=== PATIENT | male | born 1935 | race Caucasian/White ===

== ENCOUNTER 2016-09-02 18:22 | Emergency (ER) | payer BC, MEDICARE ==
[2016-09-02 18:52] LABS: ABSOLUTE BASOPHILS # (AUTO) 0.1 10^3/uL (0.0-0.2); ABSOLUTE EOSINOPHILS # (AUTO) 0.2 10^3/uL (0.0-0.6); ABSOLUTE LYMPHOCYTES (AUTO) 1.7 10^3/uL (0.5-4.7); ABSOLUTE MONOCYTES (AUTO) 0.7 10^3/uL (0.1-1.4); ABSOLUTE NEUT (AUTO) 4.1 10^3/uL (1.7-8.2); EOSINOPHILS % (AUTO) 2.4 % (0-6); HEMATOCRIT 38.1 % (37.9-51.0); HEMOGLOBIN 13.6 g/dL (13.5-17.0); HGB HCT DIFFERENCE 2.7; LYMPHOCYTES % (AUTO) 24.8 % (13-45); MEAN CORPUSCULAR HGB CONC 35.6 g/dL (32.0-36.0); MEAN CORPUSCULAR VOLUME 101 fl (80-97); MONOCYTES % (AUTO) 10.9 % (3-13); RED BLOOD COUNT 3.77 10^6/uL (4.35-5.55); RED CELL DISTRIBUTION WIDTH 13.2 % (11.5-14.0); SEGMENTED NEUTROPHILS % (AUTO) 60.9 % (42-78); WHITE BLOOD COUNT 6.7 10^3/uL (4.0-10.5)
[2016-09-02] MEDS ORDERED: MAG HYDROX/AL HYDROX/SIMETH SUSP 30 ML UDCUP PO ONE (19:04)
[2016-09-02] MEDS ORDERED: MORPHINE SULFATE 10 MG/ML INJ IV PRN (19:04)
[2016-09-02] MEDS ORDERED: METOCLOPRAMIDE HCL ORAL SOLN 10 MG/10 ML UDCUP PO ONE (19:04)
[2016-09-02] MEDS ORDERED: LIDOCAINE 2% VISCOUS SOLN 20 ML UDCUP PO ONE (19:04)
[2016-09-02] MEDS ORDERED: ONDANSETRON HCL INJ/PF 4 MG/2 ML SDV IV ONE (19:05)
--- NOTE | 2016-09-02 19:10 | ER Document Report ---
ED General - General Chief Complaint: Chest Pain Stated Complaint: CHEST PAIN Time seen by provider: 19:08 Mode of Arrival: Medic Information source: Patient Notes: This is a 81-year-old man with a history of [id number] diabetes who presents to the emergency room with nonradiating substernal chest pain. He denies any radiation to the arms, jaw or to the back. He denies shortness of breath or abdominal pain. Patient denies any cardiac history. His only medicine is metformin and admits that he doesn't always take it. He denies any smoking. He does have a family history of coronary artery disease. Patient states he was given some nitroglycerin by EMS and it did help. EMS reports that his initial blood pressure at the scene was 200/100. He was given nitroglycerin 2, started on a Nitropaste, given normal saline bolus by EMS. Patient does state he took 2 full aspirins at home before EMS arrival. Onset of pain: Approximately 4 PM today Primary care physician: Dr. Shannon in [place] Medication: Metformin (not all the time) Past surgical history: Appendectomy as a child Allergies: None - HPI Onset: Just prior to arrival Onset/Duration: Gradual Quality of pain: Dull Severity: Moderate Pain Level: 3 Associated symptoms: Chest pain. denies: Fever, Shortness of breath, Sweating Exacerbated by: Denies Relieved by: Other - Patient states that initially he had some relief with nitroglycerin by EMS Similar symptoms previously: No Recently seen / treated by doctor: No - Related Data Allergies/Adverse Reactions: No Known Allergies Allergy (Verified 09/02/16 19:10) Past Medical History - General Information source: Patient - Social History Smoking Status: Never Smoker Cigarette use (# per day): No Chew tobacco use (# tins/day): No Frequency of alcohol use: Occasional Drug Abuse: None Lives with: Spouse/Significant other Family History: CAD Patient has suicidal ideation: No Patient has homicidal ideation: No - Past Medical History Cardiac Medical History: Reports: None Pulmonary Medical History: Reports: None EENT Medical History: Reports: None Neurological Medical History: Reports: None Endocrine Medical History: Reports: Hx Diabetes Mellitus Type 2 Renal/ Medical History: Reports: None Malignancy Medical History: Reports None GI Medical History: Reports: None Musculoskeltal Medical History: Reports None Skin Medical History: Reports None Psychiatric Medical History: Reports: None Traumatic Medical History: Reports: None Infectious Medical History: Reports: None Past Surgical History: Reports: Hx Appendectomy Review of Systems - Review of Systems Constitutional: denies: Chills, Fever EENT: No symptoms reported Cardiovascular: See HPI Respiratory: No symptoms reported Gastrointestinal: No symptoms reported Genitourinary: No symptoms reported Male Genitourinary: No symptoms reported Musculoskeletal: No symptoms reported Skin: No symptoms reported Hematologic/Lymphatic: No symptoms reported Neurological/Psychological: No symptoms reported Physical Exam - Vital signs Vitals: Resp 13 09/02/16 18:31 Notes: Physical exam: GENERAL: 81-year-old man, alert and oriented 3, no acute distress HEAD: Atraumatic, normocephalic. EYES: Pupils equal round and reactive to light, extraocular movements intact, sclera anicteric, conjunctiva are normal. ENT: TMs normal, nares patent, oropharynx clear without exudates. Moist mucous membranes. NECK: Normal range of motion, supple without lymphadenopathy or JVD. LUNGS: Breath sounds clear to auscultation bilaterally and equal. No wheezes rales or rhonchi. HEART: Regular rate and rhythm without murmurs, rubs or gallops. ABDOMEN: Soft, normoactive bowel sounds. No tenderness to palpation. No guarding, no rebound. No masses appreciated. EXTREMITIES: Normal range of motion, no pitting or edema. No clubbing or cyanosis. Patient is good, equal pulses in the upper extremities. Equal femoral pulses. NEUROLOGICAL: Cranial nerves II through XII grossly intact. Normal speech, normal gait. PSYCH: Normal mood, normal affect. SKIN: Warm, Dry, normal turgor, no rashes or lesions noted. Course - Re-evaluation Re-evalutation: 09/02/16 20:42 I discussed case with Dr. Blandon at [facility] who is willing to accept the patient for Dr. Crockett to the [facility]. 09/02/16 20:50 Currently patient is pain-free. Patient took 325 aspirin 2 at home just prior to EMS arrival. Patient given nitroglycerin 2 followed by Nitropaste by EMS. Patient given morphine 2, O2 and Lovenox and ER. 09/02/16 22:27 Repeat troponin increased to 1.6. Patient is currently pain-free. Awaiting transport to [facility]. - Vital Signs Vital signs: Temp Pulse Resp BP Pulse Ox 98.2 F 16 118/69 97 09/02/16 22:15 09/02/16 22:15 09/02/16 22:15 09/02/16 22:15 - Laboratory Result Diagrams: 09/02/16 18:36 09/02/16 18:36 Laboratory results interpreted by me: 09/02/16 09/02/16 09/02/16 18:36 18:36 18:36 RBC 3.77 L MCV 101 H MCH 36.0 H Sodium 136.8 L BUN 23 H Glucose 283 H Creatine Kinase 230 H CK-MB (CK-2) 6.77 H Urine Glucose (UA) Urine Ketones Urine Ascorbic Acid 09/02/16 21:41 RBC MCV MCH Sodium BUN Glucose Creatine Kinase CK-MB (CK-2) Urine Glucose (UA) >=500 H Urine Ketones TRACE H Urine Ascorbic Acid 40 H - Diagnostic Test Radiology reviewed: Image reviewed, Reports reviewed Radiology results interpreted by me: 09/02/16 20:50 Chest x-ray shows no infiltrates. No obvious mediastinal masses. - EKG Interpretation by Me Rate: Normal Rhythm: NSR - EKG shows normal sinus rhythm with a ventricular rate of 76, there is left axis deviation, an IVCD with a right bundle branch pattern Critical Care Note - Critical Care Note Total time excluding time spent on procedures (mins): 90 Discharge - Discharge Clinical Impression: N STEMI Condition: Serious Disposition: [facility]
[2016-09-02 19:12] LABS: ALANINE AMINOTRANSFERASE 46 U/L (21-72); ALBUMIN 3.6 g/dL (3.5-5.0); ALKALINE PHOSPHATASE 90 U/L (38-126); ANION GAP 11 (5-19); ASPARTATE AMINO TRANSFERASE 38 U/L (17-59); BILIRUBIN,DIRECT 0.2 mg/dL (0.0-0.4); BILIRUBIN,TOTAL 0.6 mg/dL (0.2-1.3); BLOOD UREA NITROGEN 23 mg/dL (7-20); CALCIUM 9.3 mg/dL (8.4-10.2); CARBON DIOXIDE 26 mmol/L (22-30); CHLORIDE 100 mmol/L (98-107); CREATINE KINASE 230 U/L (55-170); CREATININE RESULT 1.01 mg/dL (0.52-1.25); GLUCOSE 283 mg/dL (75-110); POTASSIUM 4.6 mmol/L (3.6-5.0); SODIUM 136.8 mmol/L (137-145); TOTAL PROTEIN 6.6 g/dL (6.3-8.2)
[2016-09-02 19:24] LABS: CREATINE KINASE MB 6.77 ng/mL (<4.55)
[2016-09-02 19:37] LABS: TROPONIN I 0.24 ng/mL
[2016-09-02] MEDS ORDERED: ENOXAPARIN SODIUM INJ 100 MG/1 ML DISP.SYRIN SUBCUT ONE (19:53)
[2016-09-02 21:52] LABS: APPEARANCE,URINE SLIGHTLY-CLOUDY; BILIRUBIN,URINE NEGATIVE (NEGATIVE); GLUCOSE, URINE >=500 mg/dL (NEGATIVE); KETONES,URINE TRACE mg/dL (NEGATIVE); LEUKOCYTE ESTERASE,URINE NEGATIVE (NEGATIVE); NITRITE,URINE NEGATIVE (NEGATIVE); PROTEIN,URINE NEGATIVE (NEGATIVE); URINE SPECIFIC GRAVITY 1.036; UROBILINOGEN,URINE NEGATIVE mg/dL (<2.0)
[2016-09-03 00:49] VITALS: BP 117/81
--- NOTE | 2016-09-03 10:11 | EKG REPORT ---
SEVERITY:- ABNORMAL ECG - SINUS RHYTHM NONSPECIFIC IVCD WITH LAD : Confirmed by: Len Guzman 03-Sep-2016 10:11:34
--- NOTE | 2016-09-03 10:12 | EKG REPORT ---
SEVERITY:- ABNORMAL ECG - SINUS ARRHYTHMIA, RATE 57-89 NONSPECIFIC IVCD WITH LAD : Confirmed by: Len Guzman 03-Sep-2016 10:11:48
== END 2016-09-03 00:25 | disposition short-term general hospital (02) ==
LOC: ER 18:22
DX: I21.4 Non-ST elevation (NSTEMI) myocardial infarction (principal); R07.9 Chest pain, unspecified; E11.9 Type 2 diabetes mellitus without complications
CPT/HCPCS: 93005; 99291; 99292; 96374; 96372; 96375; 36415; 82553; 82550; 85025; 82272; 80053; 81001; 84484; 71010; 93010; J3490; A9270; J2270; J2405; J1650